=== PATIENT | female | born 1930 | race Caucasian/White ===

== ENCOUNTER 2018-07-30 19:23 | Observation (INO) ==
--- NOTE | 2018-07-30 20:23 | Emergency Department Note ---
Fall HPI - General Chief Complaint: Fall Stated Complaint: fall Time Seen by Provider: 07/30/18 20:05 Mode of arrival: wheelchair - History of Present Illness HPI Narrative: This 88-year-old female comes emergency room accompanied by her daughter, Karina, with difficulties being able to stand up or walk and soreness to her right ankle. She lives in a local apartment by herself. She fell recen tly around the with injury to her right ankle and x-ray did not show a fracture then or a number of days later. She was told her suggested that a CT scan would be needed to make sure there was no fracture since she still cannot walk on it. She describes left-sided weakness due to previous stroke. She is not able to get around. When she fell in the bathtub she was unable to use her muscle strength to get out of the tub. She called neighbors spice speaking loudly and they were able to get into her home through a bathroom window. Patient has been in rehabilitation units in the past after her valve replacements of her heart, previous mini stroke, and after some broken wrist. She would like to be able to return back to her independent same apartment living circumstances. REVIEW OF SYSTEMS: Denies fever. Feels cold all the time but no chills or sweats. No chest pain No cough or shortness of breath No abdominal pain, nausea vomiting constipation or hematochezia. Has some diarrhea. Some weakness. No dizziness or lightheadedness. - Related Data Home Medications Medication Instructions Recorded Confirmed levothyroxine 100 mcg tablet 100 mcg PO QAMAC tab 10/30/14 07/31/18 melatonin 3 mg tablet 3 mg PO HS tab 10/30/14 07/31/18 multivitamin tablet 1 tab PO QDAY tab 10/30/14 07/31/18 omeprazole 20 mg capsule,delayed 20 mg PO QDAY 04/08/15 07/31/18 release Warfarin [Coumadin] 5 mg PO DIRECTED tab 09/14/15 07/19/18 ascorbic acid (vitamin C) 500 mg 500 mg PO QD-BID tab 03/14/16 07/31/18 tablet ferrous sulfate 325 mg (65 mg 325 mg PO QDAY tab 03/14/16 07/31/18 iron) tablet timolol maleate 0.5 % eye drops OPHTHALMIC 30 Days #5 04/19/18 07/19/18 Spironolactone [Aldactone] 25 mg PO DAILY 07/31/18 07/31/18 amLODIPine [Norvasc] 5 mg PO BID 07/31/18 07/31/18 Previous Rx's Medication Instructions Recorded metoprolol tartrate 100 mg tablet 100 mg PO BID #180 tab 05/03/18 chlorthalidone 25 mg tablet 12.5 mg PO QOD #15 tab 06/04/18 pravastatin 40 mg tablet 40 mg PO QHS #90 tab 06/04/18 calcitriol 0.25 mcg capsule 0.25 mcg PO .COMPLEX #36 cap 07/16/18 Allergies Allergy/AdvReac Type Severity Reaction Status Date / Time hydrocodone [HYDROCODONE] Allergy Severe Unknown Verified 04/19/18 14:40 Onion Allergy Unknown Unknown Uncoded 04/19/18 14:40 TROPICAL FRUIT COCKTAIL Allergy Unknown Unknown Uncoded 04/19/18 14:40 From GARLIC OIL AdvReac Mild Unknown Uncoded 04/19/18 14:40 Fall PMH - Past Medical History [facility] Narrative: Medical History (Last Updated 07/31/18 @ 03:33 by Lasha Marino DO) CVA (cerebral vascular accident) (Chronic 02/07/10) Stage III chronic kidney disease (Chronic 03/26/13) HTN (hypertension) (Chronic) Chronic kidney disease due to hypertension (Chronic) Hyperlipidemia (Chronic) Ankle sprain and strain (Acute) Weakness of left side of body (Chronic) Self-care deficit in patient living alone (Chronic) Anemia (Chronic) Hypertensive renal disease (Chronic) Vitamin D deficiency (Chronic) Secondary hyperparathyroidism of renal origin (Chronic) Renal osteodystrophy (Chronic) Proteinuria (Chronic) Obesity (Chronic) Anemia in chronic kidney disease (Chronic) Neuropathy (Chronic) Urinary tract infection (Resolved) Urine retention (Resolved 10/18/11) Kidney disease, chronic, stage IV (severe, EGFR 15-29 ml/min) (Inactive) Chronic anticoagultion - warfarin. Past Surgical History (Last Updated 07/31/18 @ 03:32 by Lasha Marino DO) H/O colonoscopy (Resolved) History of aortic valve replacement (Resolved) History of mitral valve replacement (Resolved) History of permanent cardiac pacemaker placement (Resolved) Family History (Last Reviewed 07/19/18 @ 15:06 by Tia Sherwood MD) Son Alcohol-induced psychosis Mental disorder Sister Asthma Migraine Disorder of thyroid Father Cerebrovascular accident Mother Disorder of thyroid Malignant neoplasm of uterus Medical history: Reports: CVA, hyperlipidemia, hypertension, osteoporosis, renal disease, other (nemia. Cardiac pacemaker. Mitral valve replacement. Aortic valve replacement. Vitamin D deficiency. Urinary tract infection. Check. Hyperparathyroidism of renal origin. Proteinuria. Obesity. Neuropathy.) Denies: Parkinson's Disease - Social History smoking status: Never smoker Alcohol use: Reports: None Drug use: Reports: none Physical Exam Limitations: no limitations General appearance: alert, in distress, in no apparent distress Head: atraumatic, normocephalic Eye: Present: EOMI ENT: normal oropharynx, mucous membranes moist Neck: Present: trachea midline. Absent: lymphadenopathy, thyromegaly Chest: Present: symmetric chest wall rise Respiratory: Present: normal lung sounds bilaterally. Absent: respiratory distress, wheezes, stridor, accessory muscle use, prolonged expiratory phase Cardiovascular: Present: regular rate, normal rhythm. Absent: systolic murmur, diastolic murmur Abdominal: Present: soft. Absent: distention, tenderness, guarding, rebound, rigidity, organomegaly, mass Extremities: Present: pedal edema (moderate), pretibial edema (moderate to large amount of pretibial pitting edema bilateral, up 2/3 the leg.). Absent: calf tenderness Back: Absent: CVA tenderness (R), CVA tenderness (L), spinous process tenderness Neurological: Present: alert, oriented X3 Psychiatric: Present: normal affect, normal mood Skin: Present: warm, dry Course Vital Signs Temperature 97.7 F 07/30/18 19:24 Pulse Rate 72 07/30/18 19:24 Respiratory Rate 18 07/30/18 19:24 Blood Pressure 153/64 07/30/18 19:24 Pulse Oximetry (%) 98 07/30/18 19:24 Temperature 98.6 F 07/31/18 01:07 Pulse Rate 77 07/31/18 01:07 Respiratory Rate 16 07/31/18 01:07 Blood Pressure 133/63 07/31/18 01:07 Pulse Oximetry (%) 97 07/31/18 01:07 Fall - [facility] Narrative Medical decision making narrative: With recent falls will do labs; and with persistence of the right ankle pain such as if she cannot bear weight we will do a CT scan. - Medical Records Medical records reviewed: Yes I reviewed the patient's medical records. - Lab Data Lab results reviewed: Yes I reviewed the patient's lab results. Result diagrams: 07/30/18 20:38 07/30/18 20:38 Lab Results 07/30/18 07/30/18 07/30/18 Range/Units 20:38 20:38 20:40 WBC 8.7 (4.5-11.0) K/mcL RBC 3.56 L (4.00-5.20) M/mcL Hgb 10.1 L (12.0-15.0) g/dL Hct 30.6 L (36.0-48.0) % MCV 86.1 (80.0-100.0) fL MCH 28.4 (26.0-34.0) pg MCHC 33.0 (31.0-36.0) g/dL RDW 13.9 (11.5-14.5) % Plt Count 220 (140-440) K/mcL MPV 8.9 (7.4-10.4) fL Gran % 73.7 (38.0-78.0) % Lymph % (Auto) 13.4 L (15.5-49.0) % [place] % (Auto) 10.4 (1.0-12.0) % Eos % (Auto) 2.2 (0.0-7.0) % Baso % (Auto) 0.3 (0.0-2.0) % Gran # 6.4 (1.8-8.0) K/mcL Lymph # (Auto) 1.2 L (1.5-4.8) K/mcL [place] # (Auto) 0.9 (0.1-0.9) K/mcL Eos # (Auto) 0.2 (0.0-0.7) K/mcL Baso # (Auto) 0 (0.0-0.3) K/mcL PT 34.7 H (11.9-14.5) sec INR 3.5 H (0.9-1.1) Sodium 136 (133-145) mmol/L Potassium 4.7 (3.3-5.1) mmol/L Chloride 99 (96-108) mmol/L Carbon Dioxide 22 (22-30) mmol/L Anion Gap 15.0 (8-16) BUN 47 H (8-23) mg/dl Creatinine 1.7 H (0.6-1.1) mg/dl GFR Calculation 27 Glucose 197 H (70-105) mg/dL Calcium 9.1 (8.6-10.4) mg/dl Total Bilirubin 0.4 (0.0-1.0) mg/dL AST 44 H (0-37) U/l ALT 28 (0-40) U/l Alkaline Phosphatase 71 (39-117) U/L C-Reactive Protein 1.0 H (0.0-0.8) mg/dl NT-Pro-B Natriuret Pep 1456.0 H (0-450) pg/ml Total Protein 7.1 (5.9-8.4) gm/dL Albumin 3.6 (3.2-5.2) gm/dL Globulin 3.5 (2.2-3.7) gm/dL Albumin/Globulin Ratio 1.0 (1.0-2.3) TSH 1.11 (0.27-5.01) uIU/ml Urine Color Urine Appearance Urine pH (5.0-9.0) Ur Specific [place] (1.000-1.035) Urine Protein (NEG) mg/dL Urine Glucose (UA) (NEG) mg/dL Urine Ketones (NEG) mg/dL Urine Occult Blood (<0.03) mg/dL Urine Nitrate (NEG) Urine Bilirubin (NEG) mg/dL Urine Urobilinogen (NEG) mg/dL Ur Leukocyte Esterase (NEG) /uL Urine RBC (0-1) /hpf Urine WBC (0-4) /hpf Ur Squamous Epith Cells (0-4) /hpf Ur Transition Epith Cell (0-2) /hpf Urine Bacteria (0) /hpf Ur Culture Indicated? 07/30/18 Range/Units 22:27 WBC (4.5-11.0) K/mcL RBC (4.00-5.20) M/mcL Hgb (12.0-15.0) g/dL Hct (36.0-48.0) % MCV (80.0-100.0) fL MCH (26.0-34.0) pg MCHC (31.0-36.0) g/dL RDW (11.5-14.5) % Plt Count (140-440) K/mcL MPV (7.4-10.4) fL Gran % (38.0-78.0) % Lymph % (Auto) (15.5-49.0) % [place] % (Auto) (1.0-12.0) % Eos % (Auto) (0.0-7.0) % Baso % (Auto) (0.0-2.0) % Gran # (1.8-8.0) K/mcL Lymph # (Auto) (1.5-4.8) K/mcL [place] # (Auto) (0.1-0.9) K/mcL Eos # (Auto) (0.0-0.7) K/mcL Baso # (Auto) (0.0-0.3) K/mcL PT (11.9-14.5) sec INR (0.9-1.1) Sodium (133-145) mmol/L Potassium (3.3-5.1) mmol/L Chloride (96-108) mmol/L Carbon Dioxide (22-30) mmol/L Anion Gap (8-16) BUN (8-23) mg/dl Creatinine (0.6-1.1) mg/dl GFR Calculation Glucose (70-105) mg/dL Calcium (8.6-10.4) mg/dl Total Bilirubin (0.0-1.0) mg/dL AST (0-37) U/l ALT (0-40) U/l Alkaline Phosphatase (39-117) U/L C-Reactive Protein (0.0-0.8) mg/dl NT-Pro-B Natriuret Pep (0-450) pg/ml Total Protein (5.9-8.4) gm/dL Albumin (3.2-5.2) gm/dL Globulin (2.2-3.7) gm/dL Albumin/Globulin Ratio (1.0-2.3) TSH (0.27-5.01) uIU/ml Urine Color Yellow Urine Appearance Hazy Urine pH 5.0 (5.0-9.0) Ur Specific [place] 1.017 (1.000-1.035) Urine Protein Neg (NEG) mg/dL Urine Glucose (UA) Negative (NEG) mg/dL Urine Ketones Neg (NEG) mg/dL Urine Occult Blood Neg (<0.03) mg/dL Urine Nitrate Neg (NEG) Urine Bilirubin Neg (NEG) mg/dL Urine Urobilinogen Neg (NEG) mg/dL Ur Leukocyte Esterase 250 A (NEG) /uL Urine RBC 1 (0-1) /hpf Urine WBC 31 H (0-4) /hpf Ur Squamous Epith Cells 3 (0-4) /hpf Ur Transition Epith Cell < 1 (0-2) /hpf Urine Bacteria Few A (0) /hpf Ur Culture Indicated? Yes - Radiology Data Radiology results reviewed: Yes I reviewed the patient's radiology results. Disposition Pt seen by EDUCATIONAL THERAPIST/PA only: No Clinical Impression: Weakness of left side of body, Self-care deficit in patient living alone Ankle pain, right Qualifiers: Chronicity: acute Qualified Code(s): M25.571 - Pain in right ankle and joints of right foot Summary: With CT scan negative, left-sided weakness, patient living alone and unable to get around and take care of herself for basic care needs, patient will be admitted to observation in this hospital until outpatient arrangements can be made or rehabilitation opportunities taken advantage of. Dr. Hopson, hospitalist, agrees to the above plan. Admitting med/surg observation orders made. Disposition: Xfer As Outpt/Obs ([facility]) Condition: Fair
--- NOTE | 2018-07-30 21:27 | Cat Scan Report ---
CLINICAL INFORMATION: Right ankle pain. Fall. TECHNIQUE: Thin section axial images of the right ankle. Sagittal and coronal reformatted images COMPARISON: No previous examinations available for comparison. There are apparently no plain film studies obtained. FINDINGS: Findings consistent with osteopenia or osteoporosis. Distal tibia is negative. No acute distal tibial fracture. Articular surface of the distal tibia is negative. There are small bone densities adjacent to the medial malleolus which are consistent with small ossicles or residua from old trauma. Distal fibula is negative. No lateral malleolar fracture. Talus and calcaneus are negative. Articular surface of the talus is negative. Subtalar joint is negative. There is subcutaneous edema surrounding the left ankle joint. No significant tibiotalar joint effusion. Deltoid ligament appears at least partially intact. Achilles tendon is negative. IMPRESSION: 1. Demineralization consistent with osteopenia or osteoporosis 2. No acute right ankle fracture Interpreted and Authenticated by: Lauri Kelly 07/30/18
[2018-07-30 21:46] LABS: Basophils # (Auto) 0 K/mcL (0.0-0.3); Basophils % (Auto) 0.3 % (0.0-2.0); Eosinophils # (Auto) 0.2 K/mcL (0.0-0.7); Eosinophils % (Auto) 2.2 % (0.0-7.0); Granulocytes % (Auto) 73.7 % (38.0-78.0); Lymphocytes # (Auto) 1.2 K/mcL (1.5-4.8); Lymphocytes % (Auto) 13.4 % (15.5-49.0); Mean Cell Volume 86.1 fL (80.0-100.0); Monocytes # (Auto) 0.9 K/mcL (0.1-0.9); Monocytes % (Auto) 10.4 % (1.0-12.0); Platelet Count 220 K/mcL (140-440); RBC 3.56 M/mcL (4.00-5.20); Red Cell Distribution Width 13.9 % (11.5-14.5)
[2018-07-30 22:00] LABS: ALT/SGPT 28 U/l (0-40); Albumin 3.6 gm/dL (3.2-5.2); Alkaline Phosphatase 71 U/L (39-117); Blood Urea Nitrogen 47 mg/dl (8-23)
[2018-07-30 23:27] LABS: Appearance,Urine HAZY; Bacteria,Urine FEW /hpf (0); Bilirubin,Urine NEG (NEG); Color,Urine YELLOW; Glucose,Urine (UA) NEGATIVE (NEG); Leukocyte Esterase,Urine 250 /uL (NEG); Protein,Urine NEG (NEG); Specific Gravity,Urine 1.017 (1.000-1.035); Urine Blood NEG mg/dL (<0.03); Urine RBC 1 /hpf (0-1); Urine Squamous Epithelial Cell 3 /hpf (0-4); Urine Transitional Epi Cells < 1 /hpf (0-2); Urine WBC 31 /hpf (0-4); Urobilinogen,Urine NEG (NEG)
[2018-07-30] MEDS ORDERED: ACETAMINOPHEN 325 MG TABLET PO PRN (23:27)
--- NOTE | 2018-07-31 06:58 | Internal Med History&Physical ---
Medical - H&P: HPI Patient information: Note initiated : 07/31/18 at 6:56 am Service Date, if different from initiated Date: [] Patient: Yvette Sotelo a 88 y/o F admitted on 07/31/18 for fall. Chief Complaint: [] History of present illness: Ms. Sotelo is a 88 year old F who is been able to stand or walk around her house since injuring her ankle on the . She is unable to care for self her daughter brought her into the ED. Patient lives in apartment by herself. Sounds like she fallen again since she injured her ankle. 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 However since the injury she is been significantly decrease in her mobility. Her family brought her in for the further imaging of the ankle. Her CT did not show any fracture. But patient deemed unsafe to go home. She has no acute complaints other than the right ankle pain. Review of Systems: Positive as above. Denies headache/fever/chills/nausea/vomiting/chest or abdominal pain/cough/dyspnea/diarrhea. 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 Stage III chronic kidney disease (Chronic 03/26/13) HTN (hypertension) (Chronic) Chronic kidney disease due to hypertension (Chronic) Hyperlipidemia (Chronic) Ankle sprain and strain (Acute) Weakness of left side of body (Chronic) Self-care deficit in patient living alone (Chronic) Osteoporosis (Chronic) Anemia (Chronic) Hypertensive renal disease (Chronic) Vitamin D deficiency (Chronic) Secondary hyperparathyroidism of renal origin (Chronic) Renal osteodystrophy (Chronic) Proteinuria (Chronic) Obesity (Chronic) Anemia in chronic kidney disease (Chronic) Neuropathy (Chronic) Urinary tract infection (Resolved) Urine retention (Resolved 10/18/11) Kidney disease, chronic, stage IV (severe, EGFR 15-29 ml/min) (Inactive) Past Surgical History (Last Updated 07/31/18 @ 03:32 by Lasha Marino DO) H/O colonoscopy (Resolved) History of aortic valve replacement (Resolved) History of mitral valve replacement (Resolved) History of permanent cardiac pacemaker placement (Resolved) Family History (Last Reviewed 07/19/18 @ 15:06 by Tia Sherwood MD) Son Alcohol-induced psychosis Mental disorder Sister Asthma Migraine Disorder of thyroid Father Cerebrovascular accident Mother Disorder of thyroid Malignant neoplasm of uterus Social History (Last Updated 07/19/18 @ 15:24 by Tia Sherwood MD) Denies smoking or alcohol Ambulate with walker Lives by herself Medical - H&P: Meds Home Medications Medication Instructions Recorded Confirmed Type levothyroxine 100 mcg tablet 100 mcg PO QAMAC tab 10/30/14 07/31/18 History melatonin 3 mg tablet 3 mg PO HS tab 10/30/14 07/31/18 History multivitamin tablet 1 tab PO QDAY tab 10/30/14 07/31/18 History omeprazole 20 mg capsule,delayed 20 mg PO QDAY 04/08/15 07/31/18 History release Warfarin [Coumadin] 5 mg PO SUMOTUWEFR@1400 tab 09/14/15 07/31/18 History ascorbic acid (vitamin C) 500 mg 500 mg PO QD-BID tab 03/14/16 07/31/18 History tablet ferrous sulfate 325 mg (65 mg 325 mg PO QDAY tab 03/14/16 07/31/18 History iron) tablet timolol maleate 0.5 % eye drops 1 drop OPHTHALMIC DAILY 30 Days #5 04/19/18 07/31/18 History metoprolol tartrate 100 mg tablet 100 mg PO BID #180 tab 05/03/18 07/31/18 Rx chlorthalidone 25 mg tablet 12.5 mg PO QOD #15 tab 06/04/18 07/31/18 Rx pravastatin 40 mg tablet 40 mg PO QHS #90 tab 06/04/18 07/31/18 Rx calcitriol 0.25 mcg capsule 0.25 mcg PO .COMPLEX #36 cap 07/16/18 07/31/18 Rx Spironolactone [Aldactone] 25 mg PO DAILY 07/31/18 07/31/18 History Warfarin [Coumadin] 7.5 mg PO THSA@1400 07/31/18 07/31/18 History amLODIPine [Norvasc] 5 mg PO BID 07/31/18 07/31/18 History Allergies Allergy/AdvReac Type Severity Reaction Status Date / Time hydrocodone [HYDROCODONE] AdvReac Mild Other Verified 07/31/18 08:45 Onion Allergy Unknown Unknown Uncoded 04/19/18 14:40 TROPICAL FRUIT COCKTAIL Allergy Unknown Unknown Uncoded 04/19/18 14:40 From GARLIC OIL AdvReac Mild Unknown Uncoded 04/19/18 14:40 Medical - H&P: Exam - Constitutional Vitals: Temp Pulse Resp BP Pulse Ox 98.0 F 70 12 120/49 91 07/31/18 05:00 07/31/18 05:00 07/31/18 05:00 07/31/18 05:00 07/31/18 05:00 Exam: General: Alert, Awake, No acute Distress Eyes/N/T: EOMI, PEERL, Head/Neck: neck supple, normocephalic atraumatic CV: RRR, No murmurs, normal s1/s2 Pulm: Clear b/l, no wheezing/rhonchi/rales Abd: soft, nontender, +BS x4 Ext: no clubbing/cyanosis, 2+ bilateral lower extremity edema Neuro: Alert, left side hemiparesis, moves all extremities, cranial nerves II through XII grossly intact Skin: warm/dry Medical - H&P: Reslt - Labs CBC & Chem 7: 07/30/18 20:38 07/30/18 20:38 Labs: Short CBC 07/30/18 Range/Units 20:38 WBC 8.7 (4.5-11.0) K/mcL Hgb 10.1 L (12.0-15.0) g/dL Hct 30.6 L (36.0-48.0) % Plt Count 220 (140-440) K/mcL BMP 07/30/18 20:38 Sodium 136 Potassium 4.7 Chloride 99 Carbon Dioxide 22 BUN 47 H Creatinine 1.7 H Glucose 197 H Calcium 9.1 Liver Function 07/30/18 Range/Units 20:38 Total Bilirubin 0.4 (0.0-1.0) mg/dL AST 44 H (0-37) U/l ALT 28 (0-40) U/l Alkaline Phosphatase 71 (39-117) U/L Albumin 3.6 (3.2-5.2) gm/dL Urine 07/30/18 Range/Units 22:27 Urine Color Yellow Urine Appearance Hazy Urine pH 5.0 (5.0-9.0) Ur Specific [place] 1.017 (1.000-1.035) Urine Protein Neg (NEG) mg/dL Urine Glucose (UA) Negative (NEG) mg/dL - Impressions CT ankle and no fracture, but with osteopenia Medical - H&P: A/P - Narrative A/P Narrative: A: *Fall with right ankle injury: No fracture *Deconditioning/debility/unable to care for self at home: *UTI: *History of CVA with residual left-sided weakness: *HTN: *Hypothyroidism: *GERD: *CKD IV: Follows with Dr. Sherwood *Anemia, chronic: *History aortic and mitral valve replacement: On warfarin * P: -PT/OT -Case management for placement -Rocephin, pending urine culture -Continue Norvasc/Lopressor -Continue home statin - -ppx: Warfarin per pharmacy Medical - H&P: Qual - VTE Deep Vein Thrombosis/Pulmonary Embolism Present on Admission: No
[2018-07-31] MEDS ORDERED: cefTRIAXone 1 GM VIAL IV SCH (09:00)
[2018-07-31] MEDS ORDERED: HYDROcodone/APAP 5/325MG TABLET PO PRN (12:47)
[2018-07-31] MEDS ORDERED: ACETAMINOPHEN 325 MG TABLET PO PRN (12:47)
[2018-07-31] MEDS ORDERED: ONDANSETRON 4 MG/2 ML VIAL IV PRN (12:47)
[2018-07-31] MEDS ORDERED: CHLORTHALIDONE 25 MG TABLET PO SCH (13:00)
[2018-07-31] MEDS ORDERED: WARFARIN 5 MG TABLET PO SCH (14:00)
[2018-07-31] MEDS: 0.9 % SODIUM CHLORIDE 10 ML SYRINGE IV SCH ×2 (15:50→21:44)
[2018-07-31] MEDS ORDERED: SIMVASTATIN 20 MG TABLET PO SCH (21:00)
[2018-07-31] MEDS ORDERED: FAMOTIDINE 20 MG TABLET PO SCH (21:00)
[2018-07-31] MEDS ORDERED: MELATONIN 3 MG TABLET PO SCH (21:00)
[2018-07-31] MEDS: amLODIPine 5 MG TABLET PO SCH (21:43)
[2018-07-31] MEDS: METOPROLOL TARTRATE 50 MG TABLET PO SCH (21:44)
[2018-08-01] MEDS: 0.9 % SODIUM CHLORIDE 10 ML SYRINGE IV SCH (05:26)
--- NOTE | 2018-08-01 06:55 | Internal Med Progress Note ---
Medical - PN: Subj Patient information: Note initiated : 08/01/18 at 6:54 am Service Date, if different from initiated Date: [] Patient: Yvette Sotelo a 88 y/o F admitted on 07/31/18 for fall. Chief Complaint: [] Interval history: History of present illness: Ms. Sotelo is a 88 year old F who is been able to stand or walk around her house since injuring her ankle on the . She is unable to care for self her daughter brought her into the ED. Patient lives in apartment by herself. Sounds like she fallen again since she injured her ankle. 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 However since the injury she is been significantly decrease in her mobility. Her family brought her in for the further imaging of the ankle. Her CT did not show any fracture. But patient deemed unsafe to go home. She has no acute complaints other than the right ankle pain. 08/01 No overnight events. His right ankle pain making it difficult to walk on it. Review of Systems: denies headache/fever/chills/nausea/vomiting/chest or abdominal pain/cough/ dyspnea/diarrhea. Otherwise see above. - Constitutional Vitals: Vital Signs Temp Pulse Resp BP Pulse Ox 97.9 F 70 22 138/65 93 08/01/18 04:13 08/01/18 04:13 08/01/18 04:13 08/01/18 04:13 08/01/18 04:13 Period Temp Pulse Resp BP Sys/Cespedes Pulse Ox Last 24 Hr 97.8 F-98.4 F 69-76 12-24 135-152/56-68 93-95 Intake and Output 07/31/18 08/01/18 08/01/18 21:59 05:59 13:59 Intake Total 125 Output Total 550 150 Balance -550 -25 Weight 84.368 kg Intake & Output: Intake & Output 07/31/18 08/01/18 08/01/18 21:59 05:59 13:59 Intake Total 125 Output Total 550 150 Balance -550 -25 Weight 84.368 kg Intake: Oral 125 Output: Void Amount 550 150 Other: Urine Appearance Clear Urine Color Bright Yellow Urine Odor Normal Exam: General: Alert, Awake, No acute Distress Eyes/N/T: EOMI, Head/Neck: neck supple, CV: RRR, No murmurs, Pulm: Clear b/l, no wheezing/rhonchi/rales Abd: soft, nontender, +BS x4 Ext: no clubbing/cyanosis, bilateral lower extremity edema Neuro: Alert, left side hemiparesis, moves all extremities, Skin: warm/dry Medical - PN: Obj Da - Labs CBC & Chem 7: 07/30/18 20:38 07/30/18 20:38 Labs: Abnormal Lab Results 07/31/18 07/30/18 07/30/18 10:09 22:27 20:40 RBC Hgb Hct Lymph % (Auto) Lymph # (Auto) PT 30.9 H 34.7 H INR 3.0 H 3.5 H BUN Creatinine Glucose AST C-Reactive Protein NT-Pro-B Natriuret Pep Ur Leukocyte Esterase 250 A Urine WBC 31 H Urine Bacteria Few A 07/30/18 07/30/18 20:38 20:38 RBC 3.56 L Hgb 10.1 L Hct 30.6 L Lymph % (Auto) 13.4 L Lymph # (Auto) 1.2 L PT INR BUN 47 H Creatinine 1.7 H Glucose 197 H AST 44 H C-Reactive Protein 1.0 H NT-Pro-B Natriuret Pep 1456.0 H Ur Leukocyte Esterase Urine WBC Urine Bacteria Meds: Medications Acetaminophen (Tylenol) 650 mg PO Q6HP PRN PRN Reason: PAIN/FEVER > 101 Hydrocodone Bitart/Acetaminophen ([place] 5/325mg) 1 tab PO Q4HP PRN PRN Reason: PAIN LEVEL 3-6 Amlodipine Besylate (Norvasc) 5 mg PO BID [facility] Last Admin: 07/31/18 21:43 Dose: 5 mg Documented by: Calcitriol (Rocaltrol) 0.25 mcg PO MoWeFr@0900 [facility] Ceftriaxone Sodium (Rocephin) 1 gm IV DAILY [facility]; Protocol Chlorthalidone (Hygroton) 12.5 mg PO Q48H [facility] Last Admin: 07/31/18 15:50 Dose: 12.5 mg Documented by: Famotidine (Pepcid) 20 mg PO HS [facility] Last Admin: 07/31/18 21:43 Dose: 20 mg Documented by: Iron Carb/Multivit/Rental Sales Agent/Folic Acid (Multivitamin W/Minerals) 1 tab PO DAILY [facility] Levothyroxine Sodium (Synthroid) 100 mcg PO QAMAC MAHESH Melatonin (Melatonin 3mg Tablet) 3 mg PO HS [facility] Last Admin: 07/31/18 21:44 Dose: 3 mg Documented by: Metoprolol Tartrate (Lopressor) 100 mg PO BID [facility] Last Admin: 07/31/18 21:44 Dose: 100 mg Documented by: Ondansetron HCl (Zofran) 4 mg IV Q6HP PRN PRN Reason: Nausea And Vomiting Simvastatin (Zocor) 20 mg PO HS [facility] Last Admin: 07/31/18 21:44 Dose: 20 mg Documented by: Sodium Chloride (Saline Flush) 10 ml IV Q8 [facility] Last Admin: 08/01/18 05:26 Dose: 10 ml Documented by: Spironolactone (Aldactone) 25 mg PO DAILY [facility] Timolol Maleate (Timoptic 0.5% Ophth Drops) 1 gtt OU DAILY [facility] Warfarin Sodium (Coumadin Per Pharmacy) 1 order PO UD [facility] Medical - PN: A/P - Time Spent With Patient Total time spent is greater than 50% in coordination of care (as documented) at patient's floor/unit and/or counseling patient: - Narrative A/P Narrative: A: *Fall with right ankle injury/sprain: No fracture *Deconditioning/debility/unable to care for self at home: *UTI: no pathologic growth *History of CVA w/residual left-sided weakness: *HTN: *Hypothyroidism: *GERD: *CKD IV: Follows with Dr. Sherwood *Anemia, chronic: *History aortic and mitral valve replacement: On warfarin * P: -PT/OT -Case management for placement -Rocephin, pending urine culture -Continue Norvasc/Lopressor -Continue home statin - -ppx: Warfarin per pharmacy Medical - PN: Qual - VTE Deep Vein Thrombosis/Pulmonary Embolism Present on Admission: No
[2018-08-01] MEDS ORDERED: LEVOTHYROXINE 100 MCG TABLET PO SCH (07:30)
[2018-08-01] MEDS: METOPROLOL TARTRATE 50 MG TABLET PO SCH (07:48)
[2018-08-01] MEDS: amLODIPine 5 MG TABLET PO SCH (07:48)
[2018-08-01] MEDS ORDERED: traMADol 50 MG TABLET PO PRN (09:00)
[2018-08-01] MEDS ORDERED: TIMOLOL 0.5% OPHTH DROPS BOTTLE 5ML OU SCH (09:00)
[2018-08-01] MEDS ORDERED: CALCITRIOL 0.25 MCG CAPSULE PO SCH (09:00)
[2018-08-01] MEDS ORDERED: cefTRIAXone 1 GM VIAL IV SCH (09:00)
[2018-08-01] MEDS ORDERED: MULTIVIT,THER IRON,CA,FA & MIN 1 TABLET PO SCH (09:00)
[2018-08-01] MEDS ORDERED: SPIRONOLACTONE 25 MG TABLET PO SCH (09:00)
--- NOTE | 2018-08-01 10:51 | Cat Scan Report ---
CLINICAL INFORMATION: History of stroke. Fall. Head injury. COMPARISON: None. TECHNIQUE: Axial noncontrast-enhanced images through the brain. FINDINGS: No acute intracranial hemorrhage. No subdural hematoma. No subarachnoid hemorrhage. Basilar cisterns are normal. No intra-axial hemorrhage. No acute intra-axial attenuation abnormality or localized mass effect. No midline shift. There is cerebral atrophy. There is severe white matter abnormality consistent with small vessel ischemic change in this 88-year-old patient. There is right frontal and left frontal encephalomalacia. No acute abnormality. No calvarial lesions. No fracture. Temporal bones are negative. IMPRESSION: 1. Severe white matter abnormality consistent with small vessel ischemic change. Bilateral areas of encephalomalacia 2. No acute abnormality. No intracranial hemorrhage. The exam was performed using radiation dose optimization techniques including, but not limited to, automated exposure control, adjustment of the mA and/or kV according to patient size and use of iterative reconstruction technique. Interpreted and Authenticated by: Lauri Kelly 08/01/18
--- NOTE | 2018-08-01 11:15 | Discharge Summary ---
Medical - DS: Prov Patient information: Note initiated : 08/01/18 at 11:12 am Service Date, if different from initiated Date: [] Patient: Yvette Sotelo 88 y/o F admitted on 07/31/18 for fall. Chief Complaint: [] Date of admission: 07/31/18 01:07 Discharge date: 08/01/18 Primary care physician: Lola Peralta Consults: 07/30/18 Consult to Physician [CONS] Stat Comment: Consulting Provider: Arthur Hopson Reason For Exam: Physician to Consult Medical - DS: Meds - Discharge Medications Prescriptions: traMADol [Ultram] 50 mg PO Q8HP PRN #30 tab PRN Reason: Pain Active and Home Medications: Home Medications levothyroxine 100 mcg tablet 100 mcg PO QAMAC tab 10/30/14 [History Confirmed 07/31/18 Last Taken 07/30/18 11:00] melatonin 3 mg tablet 3 mg PO HS tab 10/30/14 [History Confirmed 07/31/18 Last Taken 07/29/18 20:00] multivitamin tablet 1 tab PO QDAY tab 10/30/14 [History Confirmed 07/31/18 Last Taken 07/30/18 11:00] omeprazole 20 mg capsule,delayed release 20 mg PO QDAY 04/08/15 [History Confirmed 07/31/18 Last Taken 07/30/18 11:00] Warfarin [Coumadin] 5 mg PO SUMOTUWEFR@1400 tab 09/14/15 [History Confirmed 07/31/18 Last Taken 2 Days Ago ~07/29/18] ascorbic acid (vitamin C) 500 mg tablet 500 mg PO QD-BID tab 03/14/16 [History Confirmed 07/31/18 Last Taken 07/30/18 20:00] ferrous sulfate 325 mg (65 mg iron) tablet 325 mg PO QDAY tab 03/14/16 [History Confirmed 07/31/18 Last Taken Unknown] timolol maleate 0.5 % eye drops 1 drop OU DAILY 30 Days #5 04/19/18 [History Confirmed 07/31/18 Last Taken 2 Days Ago ~07/29/18] metoprolol tartrate 100 mg tablet 100 mg PO BID #180 tab 05/03/18 [Rx Confirmed 07/31/18 Last Taken 07/30/18 20:00] chlorthalidone 25 mg tablet 12.5 mg PO QOD #15 tab 06/04/18 [Rx Confirmed 07/31/18 Last Taken 2 Days Ago ~07/29/18] pravastatin 40 mg tablet 40 mg PO QHS #90 tab 06/04/18 [Rx Confirmed 07/31/18 Last Taken 07/30/18 20:00] calcitriol 0.25 mcg capsule 0.25 mcg PO .COMPLEX #36 cap 07/16/18 [Rx Confirmed 07/31/18 Last Taken 2 Days Ago ~07/29/18] Spironolactone [Aldactone] 25 mg PO DAILY 07/31/18 [History Confirmed 07/31/18 Last Taken 07/30/18 20:00] Warfarin [Coumadin] 7.5 mg PO THSA@1400 07/31/18 [History Confirmed 07/31/18 Last Taken Unknown] amLODIPine [Norvasc] 5 mg PO BID 07/31/18 [History Confirmed 07/31/18 Last Taken 07/30/18 20:00] Medical - DS: Hosp Hospital course: Ms. Sotelo is a 88 year old F who is been able to stand or walk around her house since injuring her ankle on the . She is unable to care for self her daughter brought her into the ED. Patient lives in apartment by herself. Sounds like she fallen again since she injured her ankle. 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 However since the injury she is been significantly decrease in her mobility. Her family brought her in for the further imaging of the ankle. Her CT did not show any fracture. But patient deemed unsafe to go home. She has no acute complaints other than the right ankle pain. 08/01 No overnight events. Her right ankle pain making it difficult to walk on it. Ordered ankle brace for support. CT brain no acute, but showed cerebral atrophy severe white matter ischemic small vessel disease as well as right frontal left frontal encephalomalacia. Urine culture only non-pathological ramiro cultured. Patient awaiting placement as unable to care for herself at home. Discharge diagnosis: Right ankle sprain inability to care for self at home deconditioning/debili Secondary discharge diagnosis: History of CVA tension hypothyroidism chronic kidney disease anemia - Time Spent with Patient Total time spent providing and/or coordinating discharge services: Greater than 30 minutes Medical - DS: Exam - Constitutional Vitals: Vital Signs Temp Pulse Resp BP Pulse Ox 08/01/18 08:00 97.4 F 74 22 149/64 97 08/01/18 04:13 97.9 F 70 22 138/65 93 07/31/18 22:53 98.4 F 69 22 145/56 93 07/31/18 21:00 70 24 H 95 07/31/18 20:07 97.8 F 70 24 H 152/64 95 07/31/18 16:00 98.1 F 76 12 135/68 95 07/31/18 14:05 97.8 F 72 12 138/65 94 Intake and Output 07/31/18 08/01/18 08/01/18 21:59 05:59 13:59 Intake Total 125 120 Output Total 550 150 500 Balance -550 -25 -380 Intake: Oral 125 120 Output: Void Amount 550 150 500 Other: Meal Breakfast Percent of Meal Consumed 100% Feeding Ability Independent Urine Appearance Clear Urine Color Bright Yellow Urine Odor Normal # Voids 1 Weight 84.368 kg Medical - DS: Data Labs on day of discharge: Labs from last 24 hours 08/01/18 07/31/18 04:30 10:09 PT 23.4 H 30.9 H INR 2.1 H 3.0 H Medical - DS: A/P - Patient/Caregiver Discharge Instructions Activity: as per physical therapy Diet: Renal Additional Instructions: Wear ankle brace for support Unable to be placed at rehab facility due to insurance reasons. C not an option per daughter. Patient will discharge home with daughter. Prescriptions: traMADol [Ultram] 50 mg PO Q8HP PRN #30 tab PRN Reason: Pain Other Amb Orders: Physical Therapy at Discharge - SKIP Location: None Selected Physical Therapy at Discharge - SKIP Location: None Selected - Follow up Plan Follow up with: Lola Peralta MD [Primary Care Provider] - Disposition: Xfer Other Prognosis: Fair Rehab Potential: Fair Overall status at discharge: patient is not back to baseline Medical - DS: Qual - VTE Deep Vein Thrombosis/Pulmonary Embolism Present on Admission: No
[2018-08-01] MEDS ORDERED: WARFARIN 7.5 MG TABLET PO ONE (14:00)
[2018-08-02] MEDS ORDERED: WARFARIN 7.5 MG TABLET PO SCH (14:00)
== END 2018-08-01 13:30 | disposition other institution (70) ==
LOC: ED 19:23 → ICU 19:23 → MEDSUR 07-31 05:03
PROVIDERS: ADMIT Internal Medicine; ATTEND Internal Medicine